=== PATIENT | male | born 1985 | race Two or more races ===

== ENCOUNTER 2018-12-03 11:15 | Emergency (ER) | payer MEDICAID ==
[~2018-12-03] VITALS: Ht 172.7 cm; Wt 81.6 kg
[2018-12-03 11:40] VITALS: BP 125/79
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
[2018-12-03] MEDS ORDERED: Tetanus/Diptheria/Pertussis Vaccine 0.5ml Syr IM ONE (12:00)
[2018-12-03] MEDS ORDERED: Bacitracin Oint UD TOPIC ONE (12:00)
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
--- NOTE | 2018-12-03 12:12 | NUR ---
ED Nurse Note: Tdap injection given to right deltoid muscle. Patient tolerated the injection without problem.
[2018-12-03] MEDS ORDERED: CEPHALEXIN500 MG ORAL (12:18)
[2018-12-03] MEDS ORDERED: SILVER SULFADIA50 GM TP (12:18)
[2018-12-03] MEDS ORDERED: BACITRACIN-P28.35 GM TP (12:18)
[2018-12-03 12:23] VITALS: BP 125/79
--- NOTE | 2018-12-03 12:23 | NUR ---
ER DISCHARGE NOTE: Patient is cleared to be discharged per ERMD, pt is aox4, on room air, with stable vital signs. pt was given dc and prescription instructions, pt was able to verbalize understanding, pt id band removed. pt is able to ambulate with steady gait. pt took all belongings.
== END 2018-12-03 12:23 | disposition home or self-care (01) ==
LOC: EMR 12:20
DX: T23.201A Burn of second degree of right hand, unspecified site, initial encounter (principal); T31.0 Burns involving less than 10% of body surface; Z23 Encounter for immunization; X03.8XXA Other exposure to controlled fire, not in building or structure, initial encounter; Y93.9 Activity, unspecified; Y92.89 Other specified places as the place of occurrence of the external cause; Y99.9 Unspecified external cause status
CPT/HCPCS: 90471; 90715; 96372; 99283